=== PATIENT | female | born 1970 | race Caucasian/White ===

== ENCOUNTER 2016-05-10 16:44 | Emergency (ER) | payer OTHER ==
[2016-05-10 17:15] VITALS: BP 124/78
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
--- NOTE | 2016-05-10 17:49 | RAD ---
INDICATION: Right thumb injury COMPARISON: None TECHNIQUE: AP, lateral, and oblique views were obtained. FINDINGS: The bony structures, joint spaces, and soft tissues are normal for age. IMPRESSION: NEGATIVE EXAMINATION.
== END 2016-05-10 17:55 | disposition home or self-care (01) ==
LOC: UCEAST 16:44
DX: S60.011A Contusion of right thumb without damage to nail, initial encounter (principal); W50.0XXA Accidental hit or strike by another person, initial encounter; Y93.89 Activity, other specified; Y92.9 Unspecified place or not applicable; Z88.1 Allergy status to other antibiotic agents; E07.9 Disorder of thyroid, unspecified
CPT/HCPCS: 99211; G0463

== ENCOUNTER 2017-03-22 10:47 | Observation (INO) | payer OTHER ==
[2017-03-22] MEDS ORDERED: LORazepam TAB(*) 1 MG ONE (11:33)
[2017-03-22] MEDS ORDERED: Scopolamine 1.5 mg* PATCH ONE (11:33)
[2017-03-22] MEDS ORDERED: Ondansetron INJ* 2 MG/ML VIAL ONE (11:33)
[2017-03-22] MEDS ORDERED: Ibuprofen TAB* 800 MG PO ONE (12:00)
[2017-03-22] MEDS ORDERED: Scopolamine 1.5 mg* PATCH TRANSDERM SCH (12:00)
[2017-03-22] MEDS ORDERED: Clindamycin 900 MG IVPREMIX(* 900 MG/50 ML SDV IV ONE (12:30)
[2017-03-22] MEDS ORDERED: HYDROmorphone PCA* 20 MG/20 ML PCA.SYRING PCA SCH (12:30)
[2017-03-22] MEDS ORDERED: fentaNYL* 50 MCG/ML 5 ML VIAL (250 MCG VIAL) ONE (12:45)
[2017-03-22] MEDS ORDERED: Ketorolac INJ* 30 MG/ML 1 ML VIAL ONE ×2 (12:45→14:41)
[2017-03-22] MEDS ORDERED: Naloxone* 0.4 MG/ML 1 ML VIAL ONE (12:45)
[2017-03-22] MEDS ORDERED: Flumazenil* 0.1 MG/ML 5 ML MDV ONE (12:45)
[2017-03-22] MEDS ORDERED: Midazolam* 1 MG/ML 5 ML VIAL (5 MG) ONE (12:45)
[2017-03-22] MEDS ORDERED: Lidocaine 1% INJ* 10 MG/ML 30 ML SDV ONE (12:46)
[2017-03-22] MEDS ORDERED: nitroGLYCERIN DRIP* 25,000 MCG/250 ML BTL ONE (12:46)
[2017-03-22] MEDS ORDERED: Heparin 2 UNITS/ML IVPREMIX* 2,000 ML IV ONE (12:46)
[2017-03-22] MEDS ORDERED: Iohexol 350 (CONTRAST) 200 ML MDV IV ONE (12:46)
[2017-03-22 12:49] LABS: Hematocrit 39 % (35-47); Hemoglobin 13.2 g/dl (12.0-16.0); Mean Corpuscular HGB Conc 33 g/dl (31-36); Mean Corpuscular Hemoglobin 30 pg (27-31); Mean Corpuscular Volume 90 fL (80-97); Mean Platelet Volume 7 um3 (7.4-10.4); Red Blood Count 4.38 10^6/ul (4.0-5.4); Red Cell Distribution Width 14 % (10.5-15); White Blood Count 7.3 10^3/ul (3.5-10.8)
[2017-03-22] MEDS: NS 0.9% 1000 ML* 1,000 ML IV SCH ×2 (15:30→20:42)
[2017-03-22] MEDS: HYDROmorphone PCA* 20 MG/20 ML PCA.SYRING ONE ×2 (15:43→18:10)
--- NOTE | 2017-03-22 17:51 | RAD ---
CPT II Codes: 6045F Procedure(s) performed: * Pelvic arteriogram including the bilateral internal iliac arteries. * Catheter arteriography of the bilateral uterine arteries. * Catheter embolization of the bilateral uterine arteries. Date of service: March 22, 2017 Indication for procedure: Severe menstrual plane and heavy bleeding in the presence of a uterine fibroid. Comparison: MRI of the pelvis dated March 13, 2017 Contrast: 65 mL Omnipaque 300 Fluoroscopy Time: 27.6 minutes Vessels Accessed: Percutaneous access was obtained with ultrasound guidance in the right common femoral artery in the retrograde direction towards the heart. Catheter arteriography, with the catheter tip located within the lumen of the following arteries, was performed at the Bilateral Internal Iliac Arteries and Bilateral Uterine Arteries. Anesthesia: Conscious sedation with IV Fentanyl and Versed as well as local 1% lidocaine injected locally at the arteriotomy site. Conscious sedation time: Timeout: 1322 hours Case end: 1500 hours Total conscious sedation time: 1 hour and 38 minutes Additional medications: * 225 mcg IA nitroglycerin injected intermittently throughout the course of the procedure to alleviate arterial spasm. * Intra-arterial Toradol, 15 mg injected into each uterine artery, for a total of 30 mg intra-arterial. * Intravenous Toradol, 30 mg. * Transdermal scopolamine patch 1.5 mg applied to the mastoid process prior to the procedure beginning. * A total of 4 mg Zofran was administered intravenously. PROCEDURE NOTE AND INTRAPROCEDURAL IMAGING FINDINGS: Immediately prior to the procedure the patient signed consent after thoroughly discussing all risks and benefits. The patient was positioned on the fluoroscopy table in the supine position and the bilateral groins were shaved, prepped and draped in standard sterile fashion. Using fluoroscopic imaging the location of the right common femoral head was marked externally with a skin marker on the patient's groin. Utilizing sonographic guidance and palpation the right common femoral artery was cannulated overlying the right femoral head with an 21-gauge needle. An ultrasound image was saved. A microwire was slowly and smoothly advanced to the aortic bifurcation under fluoroscopic imaging. No buckling of the wire was visualized to indicate dissection. Over the wire a 5-Micronesian catheter was advanced into the artery, the inner stiffener removed and the microwire was replaced with a 0.035" Bentsen wire which was advanced into the aorta. Finally the 5 Micronesian catheter was exchanged for a 5 Micronesian sidearm sheath. Utilizing a Bentson wire and 5-Micronesian Contra 2 flush catheter the left common iliac artery was accessed. With the tip of the catheter in the proximal most portion of the left internal iliac artery, angiography was performed to detail the branches of the left internal iliac artery which had depicted the uterine artery providing blood flow to the patient's uterine fibroid. Arteriograms in multiple oblique projections were performed to best discern the branch point of the uterine artery. Once the uterine artery was identified, a Renegade High-flow microcatheter and microwire were advanced into the parent catheter and, in conjunction with contrast angiography, the uterine artery was identified and selected with the micro catheter. Prior to embolization, contrast injection into the horizontal portion of the uterine artery demonstrated no large, obvious collateral blood flow to the ovary or a definite cervicovaginal branch descending inferiorly. Intra-arterial nitroglycerin was injected intermittently to alleviate arterial spasm. Under fluoroscopic control approximately 2 vials of 500-700 micron Embospheres and 1 vial of 700-900 micron Embospheres were slowly injected into the uterine artery to near complete stasis. Towards the conclusion of the left embolization 15 mg of Toradol was injected intra-arterially. The microcatheter was pulled back into the more proximal descending portion of the uterine artery and contrast angiography depicted near complete stasis of the uterine artery. The microcatheter was removed and replaced with an 0.035" guidewire. A 5-Micronesian Empress catheter was advanced into the contralateral iliac artery over the wire and the loop was formed in the aorta. With the loop formed and the wire within the catheter, the system was slowly retracted gaining access to the ipsilateral right internal iliac artery. Contrast angiography with the tip of the 5-Micronesian catheter in the proximal most portion of the right internal iliac artery demarcated the right uterine artery and multiple oblique projections were obtained to best depict the origin of the uterine artery. Once the uterine artery was identified, a Renegade High-flow microcatheter and microwire were advanced into the parent catheter and, in conjunction with contrast angiography, the uterine artery was identified and selected with the micro catheter. Prior to embolization, contrast injection into the horizontal portion of the uterine artery demonstrated no large, obvious collateral blood flow to the ovary or a definite cervicovaginal branch descending inferiorly. Intra-arterial nitroglycerin was injected intermittently to alleviate arterial spasm. Under fluoroscopic control approximately 1 vial of 500-700 micron Embospheres were slowly injected into the uterine artery to near complete stasis. Towards the conclusion of the right-sided embolization 15 mg of Toradol was injected intra-arterially. The microcatheter was pulled back into the more proximal descending portion of the uterine artery and contrast angiography depicted near complete stasis of the uterine artery. The microcatheter and wire were removed and the 0.035" wire was readvanced to the tip of the catheter. The system was then advanced towards the aorta. The contralateral left common iliac artery was accessed and the catheter and wire were removed under fluoroscopic control. The access sheath was removed and pressure was held at the common femoral arteriotomy for approximately 15 minutes. There were no signs of bleeding at the right groin access site and the site was dressed with sterile gauze and Tegaderm. The patient tolerated the procedure well and was transferred to the short stay recovery unit in stable condition for routine overnight observation and pain and nausea control. SUMMARY OF PROCEDURE, IMAGING FINDINGS AND INTERVENTIONS PERFORMED: 1. Diagnostic studies performed: * Arterial access was obtained at the right common femoral artery in the retrograde direction (i.e. towards the heart) with ultrasound guidance. A sonographic image was recorded. * Diagnostic catheter angiography was necessary to locate and subsequently cannulate the ostium of the bilateral uterine arteries for the purpose of embolization. Diagnostic catheter angiography with the catheter tip in the bilateral internal iliac arteries and bilateral uterine arteries. * Catheter arteriography was performed of the bilateral internal iliac arterial system and specifically the bilateral uterine arteries. 2. Interpretation of diagnostic studies performed: * Left dominant bilateral uterine arteries providing blood flow to the uterus and uterine fibroid. * There were no large branch arteries to the ovaries identified. 3. Surgical interventions performed: * Near stasis embolization of the bilateral uterine arteries utilizing 3 vials of 500-700 um Embospheres and one vial 700-900 um Embospheres. 4. Interpretation of interventions performed: * Final arteriography demonstrated near complete stasis of the bilateral uterine arteries.. PLAN: 1. The patient will be admitted to short stay surgical unit for routine overnight observation including pain and nausea control. 2. Outpatient clinical and imaging follow-up according to the Interventional Radiology protocol.
--- NOTE | 2017-03-22 18:27 | PN ---
Progress Note - Progress Note Date of Service: 03/22/17 SOAP: Subjective: Pratik is at bedside. Patient rates pain "6 or 7...hard to tell because I'm so sleepy...but it's okay right now". Denies nausea. Has taken small sips of clears. Objective: Selected Entries 03/22/17 03/22/17 03/22/17 17:14 17:52 18:10 Temperature 98.2 F Temperature Temporal Artery Source Scan Respiratory 16 Rate Blood Pressure 100/59 (mmHg) Blood Pressure 69 Mean O2 Sat by Pulse 100 Oximetry No signs of acute distress. Sleeping, but arousable to voice. AAO x 3 after arousal. Abdomen and pelvis is soft, minimally tender to palpation Right common femoral arteriotomy site is soft, nontender Dressing is CDI 2+ pulses at right [employer]IAN, pop and DPA Right leg neuromuscular intact grossly Assessment: 47 YOF status post Uterine Fibroid Embolization with pain and nausea adequately controlled. Plan: 1. Standard post UFE pain and nausea control. 2. Bedrest ends at 1900. 3. D/C Vaughn at 2100. 4. Advance diet slowly. 5. Transition to PO medications in a.m. as tolerated.
[2017-03-22] MEDS: Ketorolac INJ* 30 MG/ML 1 ML VIAL IV SCH (20:15)
[2017-03-22] MEDS: Ondansetron INJ* 2 MG/ML VIAL IV SCH (20:16)
[2017-03-22] MEDS ORDERED: NS 0.9% 1000 ML* 1,000 ML IV SCH (21:00)
--- NOTE | 2017-03-22 21:32 | HP ---
CC: Leeanna Marks MD * [facility] MEDICINE HISTORY AND PHYSICAL: DATE OF ADMISSION: 03/22/17 PRIMARY CARE PHYSICIAN: Leeanna Marks MD ATTENDING PHYSICIAN: Dr. Ingrid Rosado * (dictation provided by Kimmie Somers NP ). CHIEF COMPLAINT: Uterine fibroid, status post uterine fibroid embolization. HISTORY OF PRESENT ILLNESS: Ms. May is a 47-year-old female with a past medical history of hypothyroidism and recent diagnosis of uterine leiomyoma, who presents today for planned uterine fibroid embolization with Dr. Harrington. Per the report, Ms. May has had about 18 months of worsening painful menses as well as worsening menstrual bleeding. For this reason, she followed up with a transvaginal ultrasound on 09/28/16 that showed a 3.1 x 2.9 x 3.1 cm uterine fibroid and ultimately followed up with Dr. Harrington and reviewed the risks and benefits of possible uterine fibroid embolization. The patient had an MRI of the pelvis and preparation for this planned intervention which confirmed the presence of a large uterine fibroid. Ms. May underwent this procedure today. She is in some minor pain, but she is quite sedated after use of narcotics for pain control in the immediate postprocedural period. PAST MEDICAL HISTORY: 1. Hypothyroidism. 2. Uterine leiomyoma. MEDICATIONS: As outpatient are: 1. B12 daily. 2. Iron supplementation daily. 3. Multivitamin with mineral daily. 4. Levothyroxine 150 mcg by mouth daily. 5. Vitamin D 1 tab daily. 6. Rizatriptan 5 mg with migraines. 7. Hydrocodone with ibuprofen 7.5/200 mg as needed for migraines. FAMILY HISTORY: Father has diabetes. Mother has asthma and factor V Leiden mutation. SOCIAL HISTORY: The patient lives with her and 2 children. She is a former smoker, but quit almost 20 years ago. She drinks alcohol only occasionally. No report of illicit drug use. Her will be the healthcare proxy. REVIEW OF SYSTEMS: A quick view of review of systems was completed with Ms. May today. Again, she is quite sedated after receiving Dilaudid for pain control. She responds appropriately with my questions and has no positive review of systems on a 14-point questionnaire. PHYSICAL EXAMINATION GENERAL: Ms. May is lying in the bed. She is in no acute distress. VITAL SIGNS: Temperature 98.2, heart rate 84, respiratory rate 16, O2 saturation 100% on room air, blood pressure 100/59. LUNGS: Clear to auscultation bilaterally with no accessory muscle use and good aeration. HEART: S1, S2. No murmur, rub or gallop and regular. ABDOMEN: Soft and nontender to very gentle palpation. Bowel sounds are positive. EXTREMITIES: No cyanosis or edema. NEUROLOGIC: She is quite sleep, but awakens appropriately to voice and answers questions appropriately and follows commands. She moves all extremities equally. SKIN: Intact. DIAGNOSTIC STUDIES/LAB DATA: Today, the WBC was 7.3, hemoglobin 13.2, hematocrit 39, and platelet count 257. INR 0.96. ASSESSMENT: Ms. May is a 47-year-old female with a past medical history of recent diagnosis of uterine leiomyoma as well as hypothyroidism, who presents to the hospital for a planned uterine fibroid embolization with Dr. Harrington. Our plans are as follows: 1. Uterine fibroid embolization. The patient is reported to have an uncomplicated procedure today per Dr. Harrington. She will continue on pain medications and antiemetics through the evening with anticipated discharge tomorrow if her symptoms are reasonably controlled. 2. Hypothyroidism. Plan to continue levothyroxine. 3. DVT prophylaxis with SCDs. 4. Code status is full code. TIME SPENT: Approximately 40 minutes were spent on the admission of this patient, more than half of the time was spent with the patient at the bedside with her reviewing the events leading up to this hospitalization, performing the physical examination, and reviewing my plan of care. KIMMIE SOMERS NP [id number]/CPS #: [id number] ROBERT
[2017-03-23] MEDS: Ketorolac INJ* 30 MG/ML 1 ML VIAL IV SCH ×2 (01:59→07:56)
[2017-03-23] MEDS: Ondansetron INJ* 2 MG/ML VIAL IV SCH ×2 (02:00→07:56)
[2017-03-23] MEDS ORDERED: Levothyroxine TAB* 150 MCG TAB PO SCH (06:00)
--- NOTE | 2017-03-23 08:39 | PN ---
Progress Note - Progress Note Date of Service: 03/23/17 SOAP: Subjective: Pelvic pain rated 4/10. Mild intermittent nausea, but no emesis. No vaginal drainage/discharge. Objective: Selected Entries 03/23/17 07:20 Temperature 99.0 F Temperature Temporal Artery Source Scan Pulse Rate 77 Respiratory 16 Rate Blood Pressure 121/65 (mmHg) Blood Pressure 79 Mean O2 Sat by Pulse 99 Oximetry NAD, AAO x 3 Abdomen and pelvis are soft, minimally tender at suprapubic area Right common femoral arteriotomy site is soft, nontender Dressing is C/D/I 2+ pulses in RLE Right leg is neuromuscular grossly intact Assessment: 47 YOF POD #1 Uterine Fibroid Embolization with pain and nausea adequately controlled. Plan: 1. D/C dilaudid [employer]ENT pump, add [place] 5/325 PO 1 or 2 tablets every 6 hours PRN. 2. Patient encouraged to take PO- "bland" breakfast tray ordered. 3. Encourage ambulation. Specifically patient will walk with assistance around the unit. 4. Will re-check later. Once embolization symptoms controlled with PO pharmacotherapy, D/C to home will follow.
[2017-03-23] MEDS ORDERED: METHYLCOBALAMINE SL SCH (09:00)
[2017-03-23] MEDS: HYDROcodone/ACETAMIN 5-325 MG* 1 TAB PO PRN ×2 (09:44→15:54)
[2017-03-23] MEDS ORDERED: Ondansetron TAB* 4 MG PO SCH (12:00)
[2017-03-23] MEDS ORDERED: Ketorolac TAB * 10 MG TAB PO SCH (14:00)
--- NOTE | 2017-03-23 15:11 | PN ---
Subjective Date of Service: 03/23/17 Interval History: Ms. May is doing relatively well today. She continues to have some abdominal pain which she rates at a 4/10. She has had some nausea today as well. She denies other complaint including chest pain or SOB. Objective Active Medications: Hydrocodone Bitart/Acetaminophen ([place] 5-325 Tab*) 2 tab PO Q6H PRN Sodium Chloride (Ns 0.9% 1000 Ml*) 1,000 mls @ 75 mls/hr IV PER RATE [facility] Ketorolac Tromethamine (Toradol Tab *) 10 mg PO Q6H [facility] Levothyroxine Sodium (Synthroid Tab*) 150 mcg PO 0600 [facility] Natural Dietary Supplement (B-12) 1,000 mcg SL DAILY [facility] Ondansetron HCl (Zofran Tab*) 4 mg PO Q6H [facility] Pharmacy Profile Note (Scopolamine Patch Remove*) 1 note PATCH OFF ONCE ONE Scopolamine (Transderm-Scop 1.5 Mg Patch*) 1 patch TRANSDERM Q72H [facility] Vital Signs - 8 hr Vital Signs: Temp Pulse Resp BP Pulse Ox 98.8 F 77 16 126/68 98 03/23/17 11:26 03/23/17 11:26 03/23/17 12:00 03/23/17 11:26 03/23/17 11:26 Oxygen Devices in Use Now: None Appearance: Female lying in bed in NAD Eyes: No Scleral Icterus Ears/Nose/Mouth/Throat: Mucous Membranes Moist Neck: Trachea Midline Respiratory: Symmetrical Chest Expansion and Respiratory Effort, Clear to Auscultation Cardiovascular: NL Sounds; No Murmurs; No JVD, No Edema Abdominal: - - Min abdominal pain with palpation Extremities: No Edema Skin: No Rash or Ulcers Neurological: Alert and Oriented x 3, NL Muscle Strength and Tone Nutrition: Taking PO's Result Diagrams: 03/22/17 12:26 Assess/Plan/Problems-Billing Assessment: Ms. May is a 47 yo F with a PMH of uterine leiomyoma and hypothyroidism who was admitted on 03/22/17 s/p uterine fibroid embolization. - Patient Problems (1) Uterine leiomyoma Comment: - Continue pain medications, NSAIDs, antiemetics. - Follow up with Dr. Harrington. (2) Hypothyroidism Comment: - Continue levothyroxine. Status and Disposition: OBV. Discharge to home with close follow up with Dr. Harrington.
--- NOTE | 2017-03-23 15:36 | PN ---
Progress Note - Progress Note Date of Service: 03/23/17 SOAP: Subjective: Pain currently 4/10 with PO medication. Intermittent nausea, but no emesis. Has walked around unit. Has eaten crackers, eggs, soup. Objective: Selected Entries 03/23/17 03/23/17 11:26 12:00 Temperature 98.8 F Temperature Oral Source Pulse Rate 77 Respiratory 16 Rate Blood Pressure 126/68 (mmHg) Blood Pressure 83 Mean O2 Sat by Pulse 98 Oximetry NAD, AAO x 3 Sitting up and conversant. Abdomen soft, minimally tender to suprapubic pressure. Right common femoral arteriotomy site is soft, NT, non-ecchymotic Dressing is CDI 2+ pulses in right leg Right leg is neuromuscular intact Assessment: 47 YOF POD #1 UFE with pain and nausea well controlled with PO medication. Plan: 1. Discharge to home. 2. Outpatient medication regimen will be as follows: * Toradol 10 mg PO Q 6 hours x 3 days, dispense #16, with 1 refill. * AFTER Tordaol is complete: Ibuprofen 600 mg PO Q 6 hours x 3days * DO NOT COMBINE TORADOL AND IBUPROFEN * [place] 5/325, take 1 or 2 tablets PO every 6 hours PRN x 5 days * Scopolamine 1.5 mg transdermal. Replace current patch at 0900 hours on Sunday03/25/17 * Zofran 4 mg PO Q 6 hours x 5 days, dispense #30, with 1 refill. 3. Purchase laxative tea (for example "Smooth Move") and drink one cup daily for a week. 4. Follow up will include Interventional Radiology R.N. call 03/26/17 and , 03/29/17, clinic visit @ 6 weeks post UFE. 5. Patient given all contact information, including my personal cell phone, prior to discharge.
[2017-03-23 15:43] VITALS: BP 128/67
--- NOTE | 2017-03-24 04:42 | DS ---
CC: Dr. Leeanna Blair * DISCHARGE SUMMARY: DATE OF ADMISSION: 03/22/17 DATE OF DISCHARGE: 03/23/17 PRIMARY CARE PHYSICIAN: Dr. Leeanna Blair. ATTENDING PHYSICIAN: Dr. Mitra García * (dictation provided by Kimmie Somers NP ). PRIMARY DIAGNOSIS: Uterine leiomyoma, status post uterine fibroid embolization. SECONDARY DIAGNOSIS: Hypothyroidism. MEDICATIONS AT THE TIME OF DISCHARGE: 1. Levothyroxine 150 mcg p.o. daily. 2. Rizatriptan 5 mg for migraines. 3. Ergocalciferol 1 tab p.o. daily. 4. Multivitamin with mineral 1 tab p.o. daily. 5. Ferrous sulfate 28 mg p.o. daily. 6. Methylcobalamin 1000 mcg sublingually daily. 7. Scopolamine 1.5 mg patch q. 72 hours. 8. Ondansetron 4 mg tabs p.o. q.6 hours p.r.n. nausea. 9. Ketorolac 10 mg p.o. q.6 hours for a total of 6 days. 10. Ibuprofen 600 mg p.o. q.6 hours p.r.n. at the completion of ketorolac. 11. Hydrocodone/acetaminophen 5/325 one to two tabs p.o. q.6 hours p.r.n. HOSPITAL COURSE: Ms. May is a 47-year-old female with a past medical history of uterine leiomyoma, who presented to the hospital on 03/22/17 for a planned uterine fibroid embolization with Dr. Harrington. I refer you to his documentation for complete details. In brief, the patient had had pelvic pain and heavy menstrual bleeding and opted for embolization after discussion of risks and benefits with Dr. Harrington. Ms. May has done well on the postprocedural period. She has had continued pain and some nausea, but it is reasonably well controlled on her current regimen. She has been provided with anti-inflammatories, pain medications, and antiemetics for symptom management. Mr. May will be following up with Dr. Harrington per his routine provided in the discharge instructions. She will be called by Dr. Harrington's office next week to check on her progress, and she will see Dr. Harrington in about 6 weeks. DISPOSITION: Home. DIET: Regular. ACTIVITY: As noted in the discharge instructions. The patient may resume showering but avoid tub bath, hot tubs, or swimming for 1 week. She is to avoid strenuous exercise and activity for 1 week. She is to slowly increase her activity after the first week. She is to have pelvic rest for 4 weeks and avoid vaginal intercourse and tampon usage, and she should not drive until she is no longer taking prescription pain medications. TIME SPENT: Approximately 60 minutes were spent in the discharge of this patient, more than half time was spent with the patient at the bedside reviewing the events leading up to and during this hospitalization, performing my physical examination, and reviewing the plan of care. KIMMIE SOMERS NP [id number]/[facility] #: [id number] ROBERT
[2017-03-25] MEDS ORDERED: Scopolamine PATCH Remove* 1 NOTE MISC PATCH OFF ONE (11:59)
== END 2017-03-23 16:50 | disposition home or self-care (01) ==
LOC: CHICATH 10:47 → SSU 16:14
PROVIDERS: ADMIT Internal Medicine; ATTEND Hospitalist
DX: D25.9 Leiomyoma of uterus, unspecified (principal); E03.9 Hypothyroidism, unspecified; Z87.891 Personal history of nicotine dependence; R10.2 Pelvic and perineal pain
CPT/HCPCS: 36415; 37243; 76937; 85027; 85610; 85730; 96374; 96375; 99156; 99157; A9270-GY; C1884; C1887; G0378; J1170; J1644; J1885; J2250; J2310; J2405; J3010